=== PATIENT | female | born 1970 | race Caucasian/White ===

== ENCOUNTER 2018-08-10 09:29 | Emergency (ER) | payer SELFPAY ==
[~2018-08-10] VITALS: Ht 157.5 cm; Wt 58.5 kg
[2018-08-10 09:41] VITALS: BP 123/80
[2018-08-10] MEDS: diphenhydrAMINE 50 MG/ML VIAL IM ONE (10:43)
[2018-08-10] MEDS: methylPREDNISolone SS 125 MG/2 ML VIAL IM ONE (10:46)
[2018-08-10 11:43] VITALS: BP 111/73
== END 2018-08-10 11:42 | disposition home or self-care (01) ==
LOC: MED 09:29
DX: L50.0 Allergic urticaria (principal); T41.3X5A Adverse effect of local anesthetics, initial encounter; Y92.89 Other specified places as the place of occurrence of the external cause
CPT/HCPCS: 96372; 99283; J1200; J2930